=== PATIENT | female | born 1980 | race Caucasian/White ===

== ENCOUNTER 2017-04-29 16:57 | Emergency (ER) | payer SELFPAY ==
[2017-04-29] MEDS ORDERED: OXYCODONE/APAP 5/325 TAB PO ONE (17:25)
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
[2017-04-29] MEDS ORDERED: FLUORESCEIN SODIUM 1 MG STRIP OP ONE (17:29)
[2017-04-29] MEDS ORDERED: PROPARACAINE 0.5% 15 ML OPHT DROP OP ONE (17:29)
[2017-04-29] MEDS ORDERED: CYCLOBENZAPRINE 10MG PREPACK#3 BTL TAKEHOME ONE (18:13)
[2017-04-29] MEDS ORDERED: HYDROCOD/APAP 5/325 PREPACK#6 BTL TAKEHOME ONE (18:13)
[2017-04-29 18:50] VITALS: BP 110/92; PULSE 90; RESP 18; TEMP 98.2; O2SAT 95
== END 2017-04-29 18:50 | disposition home or self-care (01) ==
DX: S06.0X1A Concussion with loss of consciousness of 30 minutes or less, initial encounter (principal); S09.93XA Unspecified injury of face, initial encounter; F17.200 Nicotine dependence, unspecified, uncomplicated; Y04.0XXA Assault by unarmed brawl or fight, initial encounter; Y92.410 Unspecified street and highway as the place of occurrence of the external cause